=== PATIENT | male | born 1995 | race Two or more races ===

== ENCOUNTER 2017-03-01 18:45 | Emergency (ER) | payer SELFPAY ==
--- NOTE | ~2017-03-01 | CT2 ---
[facility] A Service of [facility] RADIOLOGY TEXT RESULTS PATIENT: CEDRIC AMARO LOCATION: [place] : [birth year] UNIT #: [id number] AGE: [address]: GAYE BURCH SEX: M ORDER DR: [id number] [place], [place] [address] [id number] E MR#: [id number] Acc #: [id number] NAME: CEDRIC AMARO : 1995 SEX: M STUDY DATE/TIME: 03/01/2017 19:21 UNIT: [place] ROOM: STUDY DESCRIPTION: CT Abd and Pelv W Cont Attending Physician: Gaye Burch A.P.R.N. Ordering Physician: Gaye Burch A.P.R.N. MEDICAL IMAGING REPORT This report is preliminary unless electronic signature is present EXAM CT abdomen and pelvis with IV contrast HISTORY Penile pain for 4 days. No injury. TECHNIQUE This CT examination was performed with one or more of the following radiation dose reduction techniques: automatic exposure control, adjustment of mA and/or kV according to patient size, and iterative reconstruction. FINDINGS CT abdomen and pelvis was performed with IV contrast. CT ABDOMEN: The liver, gallbladder, spleen, pancreas, kidneys, and adrenal glands are normal. Normal caliber abdominal aorta. No ascites. No inflammatory stranding. No bowel dilatation. CT PELVIS: Normal appendix. No free fluid. No inflammatory stranding. No bowel dilatation. The urinary bladder is normal. IMPRESSION Negative CT abdomen and pelvis with contrast. No free fluid or inflammatory changes. No urinary obstruction. Dictated by... Jono Vidal M.D. THIS IS AN ELECTRONICALLY VERIFIED REPORT Jono Vidal M.D. at 03/02/2017 11:31 PM DFL/mjs [facility] A Service of [facility] RADIOLOGY TEXT RESULTS PATIENT: CEDRIC AMARO LOCATION: [facility] : [birth year] UNIT #: [id number] AGE: [address]: GAYE BURCH SEX: M ORDER DR: TD: 03/02/2017 14:06 JOB #: [id number] MEDICAL IMAGING REPORT Page 1 of 1 COPY
[2017-03-01 17:55] LABS: URINE SOURCE CLEAN CATCH
[2017-03-01 18:03] LABS: URINE APPEARANCE CLEAR; URINE BILIRUBIN NEG (NEG); URINE BLOOD NEG (NEG); URINE COLOR YELLOW; URINE GLUCOSE NEG (NEG); URINE KETONE NEG (NEG); URINE LEUKOCYTE ESTERASE TRACE (NEG); URINE NITRATE NEG (NEG); URINE PH 5.5 (5-8); URINE PROTEIN NEG (NEG); URINE SPECIFIC GRAVITY 1.028 (1.003-1.035)
[2017-03-01 18:06] LABS: CULTURE INDICATED? YES; URBCS1 AUWI 0-2 /[HPF] (0-2); URINE BACTERIA AUWI NEG (NEGATIVE); URINE SQUAMOUS EPITHELIAL CELL NONE SEEN /[HPF]
[2017-03-01 18:32] LABS: BASOPHIL% 0.3 % (0-2.5); DIFF IND NO; EOSINOPHIL# 0.1 X10e3 (0-0.7); EOSINOPHIL% 1.5 % (0.0-7.0); HEMATOCRIT 47.8 % (38.0-50.0); HEMOGLOBIN 15.9 gm/dL (13.0-16.0); LYMPHOCYTE# 2.4 X10e3 (1.0-3.5); LYMPHOCYTE% 26.6 % (17.0-45.0); MEAN CELL VOLUME 90.3 FL (83-96); MEAN CORPUSCULAR HEMOGLOBIN 29.9 PG (28-34); MEAN CORPUSCULAR HGB CONC 33.2 g/dL (30-36); MEAN PLATELET VOLUME 9.3 FL (6.5-11.5); MONOCYTE% 11.2 % (3.0-12.0); NEUTROPHIL# 5.5 X10e3 (1.5-7.1); NEUTROPHIL% 60.4 % (40-75); PLATELET COUNT 235 X10e3 (140-420); RED BLOOD COUNT 5.29 X10e (3.90-5.60); WHITE BLOOD COUNT 9.2 X10e3 (4.0-10.5)
[2017-03-01 18:55] LABS: BUN/CREATININE RATIO 13.33; CALCIUM SERUM 9.5 mg/dL (8.4-10.2); CREATININE SERUM 0.9 mg/dL (0.6-1.4); GLOM FILT RATE Estimated 120.8 mL/min (>60); POTASSIUM 3.7 mmol/L (3.5-5.1)
[2017-03-04 23:40] LABS: CHLAMYDIA TRACH Detected (Not Detected); N GONOR Not Detected (Not Detected)
== END 2017-03-01 21:14 | disposition home or self-care (01) ==
LOC: CFTX 18:45
PROVIDERS: Nurse Practitioner; Nurse Practitioner Family
DX: R10.2 Pelvic and perineal pain (principal)
CPT/HCPCS: 36415; 74177; 80048; 81003; 85025; 87086; 87491; 87591; 96360; 99284; Q9967